=== PATIENT | female | born 1995 | race Caucasian/White ===

== ENCOUNTER 2018-03-14 16:46 | Emergency (ER) | payer OTHER ==
[~2018-03-14] VITALS: Ht 156.2 cm; Wt 51.3 kg
[~2018-03-14 16:46] MED LIST: birth control
--- NOTE | 2018-03-14 17:26 | PHYS DOC ---
Past History Past Medical History: Anxiety, Arthritis, GERD, IBS, Migraines Past Surgical History: Other Smoking: Less than 1pk/day Alcohol Use: Occasionally Drug Use: None Adult General Chief Complaint Chief Complaint: INSECT BITE HPI HPI Patient is a 22-year-old female who presents with report of possible insect bite to her right lower leg. Patient is not sure the cause of the lesion but believes it may have been a spider. She indicates that last night there was just an area of redness on the lower leg and since she has had lymphangitic spreading up her medial thigh. She denies any fever. She reports only mild discomfort associated with the lesion. She does indicate that it had been quite warm to touch earlier but it is not as warm at this time. Review of Systems Review of Systems Constitutional: Denies fever or chills [] Respiratory: Denies cough or shortness of breath [] Cardiovascular: Denies chest pain[] Integument: Complains of erythematous area right lower leg with lymphangitic spreading[] Allergies Allergies Allergies Uncoded Allergies Type Severity Reaction Last Updated Verified bees Allergy Unknown Hives 03/14/18 Physical Exam Physical Exam Constitutional: Well developed, well nourished, no acute distress, non-toxic appearance. [] Cardiovascular:Heart rate regular rhythm, no murmur [] Lungs & Thorax: Bilateral breath sounds clear to auscultation [] Skin: Right lower leg demonstrates approximately 3 x 5 cm area of erythema with small amount of lymphangitis proximal to the right lower thigh. No induration or fluctuance is noted. [] Current Patient Data Vital Signs Vital Signs Date Time Temp Pulse Resp B/P (MAP) Pulse Ox O2 Delivery O2 Flow Rate FiO2 03/14/18 16:46 98.2 88 18 96 Room Air EKG EKG [] Radiology/Procedures Radiology/Procedures [] Course & Med Decision Making Course & Med Decision Making Pertinent Labs and Imaging studies reviewed. (See chart for details) [] Dragon Disclaimer Dragon Disclaimer This electronic medical record was generated, in whole or in part, using a voice recognition dictation system. Departure Departure: Impression: Primary Impression: Cellulitis Disposition: HOME, SELF-CARE Condition: STABLE Referrals: KIM CAUSEY MD (PCP) Patient Instructions: Cellulitis Additional Instructions: Take prescribed medication as directed and follow-up with your primary care provider in the next week as needed. Problem Qualifiers Primary Impression: Cellulitis Site of cellulitis: extremity Site of cellulitis of extremity: lower extremity Laterality: right Qualified Codes: L03.115 - Cellulitis of right lower limb KALI GUEVARA Jr. DO Mar 14, 2018 17:26
[2018-03-14 17:32] VITALS: BP 110/56
== END 2018-03-14 17:35 | disposition home or self-care (01) ==
LOC: ER 16:46
DX: L03.115 Cellulitis of right lower limb (principal); F41.9 Anxiety disorder, unspecified; M19.90 Unspecified osteoarthritis, unspecified site; K21.9 Gastro-esophageal reflux disease without esophagitis; G43.909 Migraine, unspecified, not intractable, without status migrainosus; K58.9 Irritable bowel syndrome, unspecified; F17.200 Nicotine dependence, unspecified, uncomplicated; Z91.030 Bee allergy status
CPT/HCPCS: 99281